=== PATIENT | male | born 1970 | race Caucasian/White ===

== ENCOUNTER 2023-03-02 11:18 | Emergency (ER) | payer OTHER ==
[~2023-03-02] VITALS: Ht 172.7 cm; Wt 109.0 kg
[2023-03-02] MEDS ORDERED: ENTRESTO 97-103MG TABLET (SACUBITRIL/VALSARTAN) PO STA (13:38)
[2023-03-02] MEDS ORDERED: ASPIRIN 81MG CHEW TABLET PO ONE (13:40)
[2023-03-02] MEDS ORDERED: CARVedilol 12.5 MG TAB PO ONE (13:40)
[2023-03-02 13:41] LABS: BASO % 0.5 % (0.0-1.0); EOS # 0.1 10^3/uL (0.0-0.5); EOS % 1.1 % (0.0-3.0); HEMATOCRIT 41.3 % (42.0-52.0); HEMOGLOBIN 13.4 g/dl (13.5-17.5); LYMPH # 1.3 10^3/uL (1.5-5.0); LYMPH % 22.6 % (24.0-44.0); MEAN CORPUSCULAR HEMOGLOBIN 28.2 pg (27.0-33.0); MEAN CORPUSCULAR HGB CONC 32.4 g/dl (32.0-36.5); MEAN CORPUSCULAR VOLUME 86.9 fl (80.0-96.0); MONO # 0.5 10^3/uL (0.0-0.8); NEUTROPHILS # 3.7 10^3/uL (1.5-8.5); NEUTROPHILS % 66.4 % (36.0-66.0); PLATELET COUNT, AUTOMATED 235 10^3/uL (150-450); RED BLOOD COUNT 4.75 10^6/uL (4.30-6.10); WHITE BLOOD COUNT 5.5 10^3/uL (4.0-10.0)
[2023-03-02 14:20] LABS: RSV AMPLIFICATION NEGATIVE (NEGATIVE)
[2023-03-02 15:54] LABS: ALBUMIN 3.9 G/DL (3.2-5.2); BILIRUBIN,DIRECT 0.1 MG/DL (<0.4); BILIRUBIN,TOTAL 0.4 MG/DL (0.3-1.2); CK-MB VALUE MASS 1.6 NG/ML (<3.6); FREE T4 1.22 NG/DL (0.89-1.76); MB/CK RELATIVE INDEX 1.7 (< OR =4); THYROID STIMULATING HORMONE 1.425 uIU/ML (0.55-4.78)
[2023-03-02] MEDS ORDERED: FUROSEMIDE 40MG/4ML VIAL IV ONE (15:55)
[2023-03-02 16:55] VITALS: BP 180/104
[2023-03-02] MEDS ORDERED: ENTR1TAB4 PO (16:59)
[2023-03-02] MEDS ORDERED: CARV12.5 PO (16:59)
[2023-03-02] MEDS ORDERED: CHLO125TA PO (16:59)
[2023-03-02] MEDS ORDERED: SPIR-10 PO (17:00)
[2023-03-02 18:18] LABS: TOTAL PROTEIN 6.8 G/DL (5.7-8.2)
== END 2023-03-02 17:01 | disposition home or self-care (01) ==
LOC: M ED 11:18
DX: I10 Essential (primary) hypertension (principal); Z95.1 Presence of aortocoronary bypass graft
CPT/HCPCS: 71045; 80047; 80076; 82550; 82553; 83690; 84439; 84443; 84484; 85025; 87631; 93005; 93041; 94760; 96374; 99284; J1940

== ENCOUNTER → 2023-04-22 | Outpatient (CLI) | payer OTHER ==
[~2023-04-22] MED LIST: CARV12.5 PO; CHLO125TA PO; ENTR1TAB4 PO; SPIR-10 PO
[2023-04-22 09:18] LABS: ALBUMIN 3.9 G/DL (3.2-5.2); BLOOD UREA NITROGEN 26 MG/DL (9-23); CARBON DIOXIDE LEVEL 28 MMOL/L (20-31); CHLORIDE LEVEL 109 MMOL/L (98-107); CHOLESTEROL LEVEL 197 MG/DL (<200); CHOLESTEROL RISK RATIO 3.95 (<5); CREATININE FOR GFR 1.17 MG/DL (0.70-1.30); GLOMERULAR FILTRATION RATE > 60.0 (>56); GLUCOSE, FASTING 117 MG/DL (60-100); HDL CHOLESTEROL 49.8 MG/DL (>40); LDL CHOLESTEROL 130.4 MG/DL (<100); NON-HDL-C 147.2 MG/DL; PHOSPHORUS LEVEL 4.1 MG/DL (2.5-4.9); POTASSIUM SERUM 4.1 MMOL/L (3.5-5.1); SODIUM LEVEL 141 MMOL/L (136-145); TRIGLYCERIDES LEVEL 84 MG/DL (<150)
== END ==
LOC: M LAB 08:09
PROVIDERS: ATTEND Internal Medicine Cardiovascular Disease
DX: I25.10 Atherosclerotic heart disease of native coronary artery without angina pectoris (principal); I11.9 Hypertensive heart disease without heart failure

== ENCOUNTER → 2023-11-27 | Outpatient (CLI) | payer MEDICAID, OTHER ==
[2023-11-27 11:13] LABS: BASO % 0.4 % (0.0-1.0); EOS # 0.1 10^3/uL (0.0-0.5); EOS % 1.1 % (0.0-3.0); HEMATOCRIT 40.4 % (42.0-52.0); HEMOGLOBIN 13.4 g/dl (13.5-17.5); LYMPH # 1.5 10^3/uL (1.5-5.0); LYMPH % 30.9 % (24.0-44.0); MEAN CORPUSCULAR HEMOGLOBIN 29.7 pg (27.0-33.0); MEAN CORPUSCULAR HGB CONC 33.2 g/dl (32.0-36.5); MEAN CORPUSCULAR VOLUME 89.6 fl (80.0-96.0); MONO # 0.4 10^3/uL (0.0-0.8); MONO % 8.1 % (2.0-8.0); NEUTROPHILS # 2.8 10^3/uL (1.5-8.5); NEUTROPHILS % 59.1 % (36.0-66.0); PLATELET COUNT, AUTOMATED 199 10^3/uL (150-450); RED BLOOD COUNT 4.51 10^6/uL (4.30-6.10); WHITE BLOOD COUNT 4.7 10^3/uL (4.0-10.0)
[2023-11-27 11:45] LABS: ALBUMIN 3.8 G/DL (3.2-5.2); ALKALINE PHOSPHATASE 69 U/L (46-116); ALT/SGPT 19 U/L (7.0-40); AST/SGOT 14 U/L (<34); BILIRUBIN,TOTAL 0.6 MG/DL (0.3-1.2); BLOOD UREA NITROGEN 24 MG/DL (9-23); CALCIUM LEVEL 8.8 MG/DL (8.5-10.1); CARBON DIOXIDE LEVEL 30 MMOL/L (20-31); CHLORIDE LEVEL 108 MMOL/L (98-107); CREATININE FOR GFR 1.08 MG/DL (0.70-1.30); GLOMERULAR FILTRATION RATE > 60.0 (>56); GLUCOSE, FASTING 102 MG/DL (60-100); POTASSIUM SERUM 4.3 MMOL/L (3.5-5.1); SODIUM LEVEL 143 MMOL/L (136-145); TOTAL PROTEIN 6.7 G/DL (5.7-8.2)
== END ==
LOC: M LAB 10:28
PROVIDERS: ATTEND Internal Medicine Cardiovascular Disease
DX: I11.0 Hypertensive heart disease with heart failure (principal); I50.9 Heart failure, unspecified

== ENCOUNTER → 2023-12-11 | Outpatient (CLI) | payer OTHER ==
[2023-12-11 12:30] LABS: ALBUMIN 4.2 G/DL (3.2-5.2); CALCIUM LEVEL 9.2 MG/DL (8.5-10.1); CHOLESTEROL RISK RATIO 4.28 (<5); CREATININE FOR GFR 1.48 MG/DL (0.70-1.30); GLOMERULAR FILTRATION RATE 52.5 (>56); HDL CHOLESTEROL 47.4 MG/DL (>40); MAGNESIUM LEVEL 2.2 MG/DL (1.8-2.4); NON-HDL-C 155.6 MG/DL; PHOSPHORUS LEVEL 4.7 MG/DL (2.5-4.9); POTASSIUM SERUM 4.5 MMOL/L (3.5-5.1)
== END ==
LOC: M LAB 10:54
PROVIDERS: ATTEND Internal Medicine Cardiovascular Disease
DX: I50.42 Chronic combined systolic (congestive) and diastolic (congestive) heart failure (principal); I25.10 Atherosclerotic heart disease of native coronary artery without angina pectoris

== ENCOUNTER → 2024-02-11 | Outpatient (CLI) | payer MEDICAID, OTHER | LOC: M ONCR 07:48 | PROVIDERS: ATTEND General Practice | DX: C44.311 Basal cell carcinoma of skin of nose (principal); Z71.2 Person consulting for explanation of examination or test findings; Z79.899 Other long term (current) drug therapy; Z95.4 Presence of other heart-valve replacement ==

== ENCOUNTER 2024-02-22 10:25 | Outpatient (RCR) | payer OTHER | END 2024-02-28 | LOC: M ONCR 10:25 | PROVIDERS: ATTEND General Practice | DX: Z51.0 Encounter for antineoplastic radiation therapy (principal); C44.311 Basal cell carcinoma of skin of nose ==

== ENCOUNTER → 2024-03-29 | Outpatient (RCR) | payer MEDICAID, OTHER | LOC: M ONCR 03-03 07:58 | PROVIDERS: ATTEND General Practice | DX: Z51.0 Encounter for antineoplastic radiation therapy (principal); C44.311 Basal cell carcinoma of skin of nose ==

== ENCOUNTER 2024-04-13 08:00 | Outpatient (RCR) | payer OTHER | END 2024-04-29 | LOC: M ONCR 08:00 | PROVIDERS: ATTEND General Practice | DX: Z51.0 Encounter for antineoplastic radiation therapy (principal); C44.311 Basal cell carcinoma of skin of nose ==

== ENCOUNTER → 2024-05-17 | Outpatient (CLI) | payer OTHER | LOC: M ONCR 08:00 | PROVIDERS: ATTEND General Practice | DX: C44.311 Basal cell carcinoma of skin of nose (principal); R04.0 Epistaxis; R09.81 Nasal congestion; Z92.3 Personal history of irradiation ==

== ENCOUNTER → 2024-06-16 | Outpatient (CLI) | payer OTHER | LOC: M ONCR 08:01 | PROVIDERS: ATTEND General Practice | DX: C44.311 Basal cell carcinoma of skin of nose (principal) ==